=== PATIENT | male | born 1975 | race Caucasian/White ===

== ENCOUNTER 2016-07-08 13:05 | Emergency (ER) | payer OTHER ==
[~2016-07-08] VITALS: Ht 180.3 cm; Wt 79.8 kg
--- NOTE | ~2016-07-08 | EKG ---
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: Sherron CARLSON : 1975 Requested By: Ammy Dickerson Order Number: [id number] MD: Alex Hooper Measurements Intervals [place] Rate: 96 P: 68 [place]: 154 QRS: 29 QRSD: 79 T: 31 QT: 371 QTc: 469 Interpretive Statements Sinus rhythm No significant abnormality No previous ECG available for comparison Electronically Signed On 07-09-2016 13:36:49 AIRCRAFT STRUCTURAL REPAIRER by Alex Hooper [email or web address] <ELECTRONICALLY SIGNED> By: Alex Hooper MD, [facility] 07/09/16 1336 [id number] Alex Hooper MD, FACC /EPI
[2016-07-08] MEDS ORDERED: PROPRANOLOL 20M20 M1 PO (13:22)
[2016-07-08] MEDS ORDERED: VENLAFAXINE HC100 MG PO (13:24)
[2016-07-08 13:56] LABS: ABSOLUTE NEUTROPHILS 3.7 thou/uL (1.4-8.2); BASOPHILS 0.6 % (0.0-2.0); EOSINOPHILS 0.4 % (0.0-3.0); HEMATOCRIT 40.5 % (42.0-52.0); LYMPHOCYTES 31.1 % (24.0-44.0); MCH 27.8 pg (26.0-34.0); MCHC 34.6 % (28.0-37.0); MCV 80.1 fL (80.0-100.0); MONOCYTES 10.5 % (1.0-8.0); PLATELET COUNT 263 thou/uL (150-400); POLYS 57.4 % (36.0-66.0); RBC 5.05 mil/uL (4.50-6.00); RDW 14.6 % (10.5-14.5); WBC 6.5 thou/uL (4.0-11.0)
[2016-07-08 14:00] LABS: MANUAL DIFF NO
[2016-07-08 14:06] LABS: ANION GAP 11 mmol/L (7-16); BUN 8 mg/dL (7-18); CALCIUM 8.8 mg/dL (8.5-10.1); CHLORIDE 101 mmol/L (98-107); CO2 28 mmol/L (21-32); CREATININE 0.9 mg/dL (0.6-1.3); GLUCOSE 98 mg/dL (70-99); POTASSIUM 3.5 mmol/L (3.5-5.1); SODIUM 140 mmol/L (136-145)
[2016-07-08 14:13] LABS: URINE BILIRUBIN NEGATIVE (Negative); URINE BLOOD NEGATIVE (Negative); URINE COLOR YELLOW; URINE GLUCOSE-RANDOM* NEGATIVE (Negative); URINE KETONES NEGATIVE (Negative); URINE NITRITE NEGATIVE (Negative); URINE PROTEIN (DIPSTICK) TRACE (Negative); URINE SPECIFIC GRAVITY 1.015 (1.003-1.035); URINE UROBILINOGEN 0.2 E.U./dl (0.2-1.0)
[2016-07-08 14:15] LABS: ALBUMIN 4.1 g/dL (3.4-5.0); ALKALINE PHOSPHATASE 96 U/L (46-116); SGOT 46 U/L (15-37); SGPT 74 U/L (30-65); TOTAL BILIRUBIN 0.4 mg/dL (<0.1-1.0); TOTAL PROTEIN 7.4 g/dL (6.4-8.2); TROPONIN-I < 0.04 ng/mL (<0.04-0.07)
[2016-07-08 14:19] LABS: AMP/METHAMP Negative (Negative); BARBITURATES Negative (Negative); BENZODIAZEPINES Negative (Negative); COCAINE Negative (Negative); METHADONE Negative (Negative); OPIATES Negative (Negative); PCP Negative (Negative); THC POSITIVE (Negative)
[2016-07-08] MEDS ORDERED: PHENERGAN 25 MG25 M1 PO (16:03)
[2016-07-08] MEDS ORDERED: CARAFATE 1 GM TA1 G1 PO (16:03)
[2016-07-08] MEDS ORDERED: PEPCID20 MG PO (16:03)
[2016-07-08 16:14] VITALS: BP 140/90
== END 2016-07-08 16:16 | disposition home or self-care (01) ==
LOC: ER 13:05
PROVIDERS: Physician Assistant
DX: K29.70 Gastritis, unspecified, without bleeding (principal); R10.9 Unspecified abdominal pain; F10.10 Alcohol abuse, uncomplicated; Z88.0 Allergy status to penicillin

== ENCOUNTER 2016-07-08 22:20 | Emergency (ER) | payer OTHER ==
[~2016-07-08] VITALS: Ht 180.3 cm; Wt 79.8 kg
--- NOTE | ~2016-07-08 | EKG ---
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
[~2016-07-08 22:20] MED LIST: CARAFATE 1 GM TA1 G1 PO; PEPCID20 MG PO; PHENERGAN 25 MG25 M1 PO; PROPRANOLOL 20M20 M1 PO; VENLAFAXINE HC100 MG PO
[2016-07-08 22:45] LABS: ABSOLUTE NEUTROPHILS 5.3 thou/uL (1.4-8.2); BASOPHILS 0.5 % (0.0-2.0); EOSINOPHILS 0.3 % (0.0-3.0); HEMATOCRIT 39.7 % (42.0-52.0); HEMOGLOBIN 13.7 gm/dL (14.0-18.0); LYMPHOCYTES 31.3 % (24.0-44.0); MCH 27.7 pg (26.0-34.0); MCHC 34.4 % (28.0-37.0); MCV 80.5 fL (80.0-100.0); MONOCYTES 9.2 % (1.0-8.0); PLATELET COUNT 261 thou/uL (150-400); POLYS 58.7 % (36.0-66.0); RBC 4.93 mil/uL (4.50-6.00); RDW 14.9 % (10.5-14.5)
[2016-07-08 22:49] LABS: MANUAL DIFF NO
[2016-07-08 22:55] LABS: ANION GAP 9 mmol/L (7-16); BUN 6 mg/dL (7-18); CALCIUM 8.4 mg/dL (8.5-10.1); CHLORIDE 102 mmol/L (98-107); CO2 26 mmol/L (21-32); CREATININE 0.8 mg/dL (0.6-1.3); GLUCOSE 94 mg/dL (70-99); POTASSIUM 3.3 mmol/L (3.5-5.1); SODIUM 137 mmol/L (136-145)
[2016-07-08 23:00] LABS: AMP/METHAMP Negative (Negative); BARBITURATES Negative (Negative); BENZODIAZEPINES Negative (Negative); COCAINE Negative (Negative); METHADONE Negative (Negative); OPIATES POSITIVE (Negative); PCP Negative (Negative); THC POSITIVE (Negative)
[2016-07-08 23:18] LABS: ALBUMIN 3.9 g/dL (3.4-5.0); ALKALINE PHOSPHATASE 95 U/L (46-116); SGOT 59 U/L (15-37); SGPT 78 U/L (30-65); TOTAL BILIRUBIN 0.7 mg/dL (<0.1-1.0); TOTAL PROTEIN 7.2 g/dL (6.4-8.2)
[2016-07-08 23:37] LABS: SALICYLATE < 2.8 mg/dL (2.8-20.0)
[2016-07-08 23:40] LABS: ACETAMINOPHEN < 2 ug/mL (10-30)
[2016-07-09 01:52] VITALS: BP 146/97
== END 2016-07-09 01:55 ==
LOC: ER 22:20
PROVIDERS: Physician Assistant
DX: R11.2 Nausea with vomiting, unspecified (principal); F10.129 Alcohol abuse with intoxication, unspecified; R07.89 Other chest pain; F12.10 Cannabis abuse, uncomplicated; R45.851 Suicidal ideations; Z88.0 Allergy status to penicillin; Y90.1 Blood alcohol level of 20-39 mg/100 ml